=== PATIENT | female | born 1985 | race African-American/Black ===

== ENCOUNTER 2021-07-15 09:21 | Emergency (ER) | payer OTHER ==
[~2021-07-15] VITALS: Ht 172.7 cm; Wt 99.3 kg
[2021-07-15] MEDS ORDERED: METHOCARBAMOL500 M2 PO (09:47)
[2021-07-15 10:25] LABS: ABSOLUTE LYMPHOCYTES 0.9 thou/uL (0.8-5.3); ABSOLUTE MONOCYTES 0.6 thou/uL (0.0-1.2); ABSOLUTE NEUTROPHILS 1.7 thou/uL (1.6-8.1); BASOPHILS 0.7 %; EOSINOPHILS 0.3 %; HEMATOCRIT 44.3 % (37.0-47.0); LYMPHOCYTES 26.8 %; MCH 31.4 pg (26.0-34.0); MCHC 33.8 g/dL (28.0-37.0); MCV 92.9 fL (80.0-100.0); MONOCYTES 17.9 %; MPV 9.2 fl. (7.2-11.1); NUCLEATED RBCS 0 /100WBC; PLATELET COUNT* 154 thou/uL (150-400); POLYS 54.3 %; RBC 4.77 mil/uL (4.20-5.00); RDW-CV 12.9 % (10.5-14.5); WBC 3.2 thou/uL (4.0-11.0)
[2021-07-15 10:31] LABS: CALCIUM 9.1 mg/dL (8.5-10.1); CREATININE 1.2 mg/dL (0.6-1.3); POTASSIUM 3.9 mmol/L (3.5-5.1)
[2021-07-15 10:36] LABS: ALBUMIN 3.8 g/dL (3.4-5.0); TOTAL BILIRUBIN 0.4 mg/dL (<0.1-1.0); TOTAL PROTEIN 7.9 g/dL (6.4-8.2)
[2021-07-15] MEDS ORDERED: TESSALON PERLE100 MG PO (11:25)
[2021-07-15] MEDS ORDERED: ZOFRAN ODT4 MG DISSOLVE (11:25)
[2021-07-15 11:36] VITALS: BP 147/77
== END 2021-07-15 11:41 | disposition home or self-care (01) ==
LOC: M.ERS 09:21
PROVIDERS: Emergency Medicine Emergency Medical Services
DX: U07.1 COVID-19 (principal); Z79.899 Other long term (current) drug therapy